=== PATIENT | female | born 1955 | race Caucasian/White ===

== ENCOUNTER → 2021-04-14 | Outpatient (CLI) | payer MEDICARE ==
[2021-04-14 09:07] LABS: African American GFR (CKD) >90 (>60 ml/min/1.73 sqM); Blood Urea Nitrogen <2 mg/dL (7-17); Non-African American GFR(CKD) >90 (>60 ml/min/1.73 sqM)
--- NOTE | 2021-04-14 11:02 | CT ---
EXAMINATION TYPE: CT abdomen pelvis wo/w con DATE OF EXAM: 04/14/2021 COMPARISON: HISTORY: diarrhea, wt loss CT DLP: 1445 mGycm Automated exposure control for dose reduction was used. CONTRAST: CT scan of the abdomen pelvis is performed without and with IV Contrast, patient injected with 100 mL of Isovue 300. FINDINGS- LUNG BASES- No significant abnormality is appreciated. LIVER/GB- No gross abnormality is appreciated. PANCREAS- No gross abnormality is seen. SPLEEN- No gross abnormality is seen. ADRENALS- No gross abnormality is seen. KIDNEYS/BLADDER- no hydronephrosis nephrolithiasis or renal mass. BOWEL-wall thickening to level the GE junction upper margin of the gastric fundus. Partially could be explained due to reduced distention however mucosal abnormality not excluded and direct visualizatio n recommended.Mild wall thickening of the right colon also may be related to incomplete distention. T here is a prominent lipomatous ileocecal valve. LYMPH NODES- No greater than 1cm abdominal or pelvic lymph nodes areappreciated. OSSEOUS STRUCTURES-hypertrophic and degenerative changes of the spine. OTHER- mild bladder wall thickening correlate with cystitis. Atherosclerotic change of the vasculatu re. Aorta of normal caliber. Post hysterectomy changes noted. IMPRESSION- 1. Mild thickening of the GE junction and gastric wall. Some of which may be related to incomplete di stention. Correlate clinically and with direct visualization to assess as clinically warranted. 2. Correlate for mild cystitis. 3. Mild wall thickening of the right colon also may be related to incomplete distention. There is a p rominent lipomatous ileocecal valve. If there is symptoms of colitis or GI abnormality then consider direct visualization.
== END | disposition home or self-care (01) ==
LOC: RADCTMAIN 08:22
PROVIDERS: ATTEND Internal Medicine
DX: N30.90 Cystitis, unspecified without hematuria (principal)
CPT/HCPCS: 82565; 84520; 74178; 36415; Q9967

== ENCOUNTER 2023-02-22 11:36 | Observation (INO) | payer MEDICARE ==
[2023-02-22] MEDS ORDERED: SODIUM CHLORIDE 0.9% 1,000 ML IV STA (11:59)
[2023-02-22 12:19] LABS: Basophils # (A) 0.1 k/uL (0-0.2); Basophils % (A) 1 %; Eosinophils # (A) 0.2 k/uL (0-0.7); Eosinophils % (A) 2 %; HCT 43.3 % (34.0-46.0); HGB 14.8 gm/dL (11.4-16.0); Lymphocytes % (A) 30 %; MCHC 34.2 g/dL (31.0-37.0); MCV 102.2 fL (80.0-100.0); Mean Platelet Volume 7.5; Monocytes # (A) 0.5 k/uL (0-1.0); Monocytes % (A) 7 %; Neutrophils # (A) 3.9 k/uL (1.3-7.7); Neutrophils % (A) 58 %; Platelet Count 390 k/uL (150-450); RBC 4.24 m/uL (3.80-5.40); RDW 11.9 % (11.5-15.5); WBC 6.7 k/uL (3.8-10.6)
--- NOTE | 2023-02-22 12:27 | ED ---
General Adult HPI - General Chief complaint: Recheck/Abnormal Lab/Rx Stated complaint: abn labs Time Seen by Provider: 02/22/23 11:59 Source: patient, family, RN notes reviewed Mode of arrival: ambulatory Limitations: no limitations - History of Present Illness Initial comments: Patient is a pleasant 67-year-old female presenting to the emergency department with concerns with reported low sodium level. Patient originally states she has no complaints. Patient later admits to feeling a little bit weak and fatigued for a very long period of time. Nothing new. No isolated area of weakness. Patient denies excessive water intake and is unclear why her sodium level might be low. No history of similar symptoms previously. No history of hyponatremia. Patient did have a fall a week ago and hit her left upper chest region. Patient is having some discomfort there. states sodium level was 126 is an outpatient. - Related Data Home Medications Medication Instructions Recorded Confirmed Cyanocobalamin (Vitamin B-12) 1,000 mcg PO DAILY 02/22/23 02/22/23 [Vitamin B-12] Metoprolol Succinate (ER) [Toprol 50 mg PO DAILY 02/22/23 02/22/23 Xl] Allergies Allergy/AdvReac Type Severity Reaction Status Date / Time No Known Allergies Allergy Verified 02/22/23 12:31 Review of Systems ROS Statement: Those systems with pertinent positive or pertinent negative responses have been documented in the HPI. ROS Other: All systems not noted in ROS Statement are negative. Constitutional: Denies: fever Eyes: Denies: eye pain ENT: Denies: ear pain Respiratory: Denies: cough, dyspnea Cardiovascular: Denies: chest pain Endocrine: Reports: as per HPI, fatigue Gastrointestinal: Denies: abdominal pain Genitourinary: Denies: dysuria Musculoskeletal: Denies: back pain Skin: Denies: rash Neurological: Reports: as per HPI. Denies: headache, confusion Past Medical History Past Medical History: Hypertension History of Any Multi-Drug Resistant Organisms: None Reported Past Surgical History: Hysterectomy, Tubal Ligation Additional Past Surgical History / Comment(s): cataracts Past Psychological History: No Psychological Hx Reported Smoking Status: Current every day smoker Past Alcohol Use History: Daily Past Drug Use History: None Reported General Exam Limitations: no limitations General appearance: alert, in no apparent distress Head exam: Present: normocephalic Eye exam: Present: normal appearance ENT exam: Present: normal oropharynx Neck exam: Present: normal inspection Respiratory exam: Present: normal lung sounds bilaterally Cardiovascular Exam: Present: regular rate, normal rhythm GI/Abdominal exam: Present: soft. Absent: tenderness Extremities exam: Present: normal inspection Neurological exam: Present: alert. Absent: motor sensory deficit Psychiatric exam: Present: normal affect, normal mood Skin exam: Present: normal color Course Vital Signs 02/22/23 02/22/23 11:39 11:47 Temperature 98.1 F Pulse Rate 74 75 Respiratory 16 18 Rate Blood Pressure 175/67 167/87 O2 Sat by Pulse 98 95 Oximetry Medical Decision Making - Medical Decision Making Was pt. sent in by a medical professional or institution (, PA, METER READER INSPECTOR, urgent care, hospital, or group home...) When possible be specific @ -Patient was sent in by primary care physician secondary to hyponatremia Did you speak to anyone other than the patient for history (EMS, parent, family, police, friend...)? What history was obtained from this source @ - is present and helps confirm history including sodium level of 126. Did you review nursing and triage notes (agree or disagree)? Why? @ -I reviewed and agree with nursing and triage notes Were old charts reviewed (outside hosp., previous admission, EMS record, old EKG, old radiological studies, urgent care reports/EKG's, group home records)? Report findings @ -Previous sodium levels reviewed Differential Diagnosis (chest pain, altered mental status, abdominal pain women, abdominal pain men, vaginal bleeding, weakness, fever, dyspnea, syncope, headache, dizziness, GI bleed, back pain, seizure, CVA, palpatations, mental health)? @ -Hyponatremia EKG interpreted by me (3pts min.). @ -As above X-rays interpreted by me (1pt min.). @ -Chest x-ray shows distal left clavicle fracture. Possible rib fractures CT interpreted by me (1pt min.). @ -None done U/S interpreted by me (1pt. min.). @ -None done What testing was considered but not performed or refused? (CT, X-rays, U/S, labs)? Why? @ -Osmolarity and urine sodium ordered What meds were considered but not given or refused? Why? @ -None Did you discuss the management of the patient with other professionals (professionals i.e. , PA, METER READER INSPECTOR, lab, RT, psych nurse, social work coordinator, interior design coordinator, teacher, precinct commanding officer, case managers)? Give summary @ -Case discussed with Dr. Lam, who will admit covering Dr. Reese Was smoking cessation discussed for >3mins.? @ -No Was critical care preformed (if so, how long)? @ -No Were there social determinants of health that impacted care today? How? (Homelessness, low income, unemployed, alcoholism, drug addiction, transportation, low edu. Level, literacy, decrease access to med. care, long term, rehab)? @ -No Was there de-escalation of care discussed even if they declined (Discuss DNR or withdrawal of care, Hospice)? DNR status @ -No What co-morbidities impacted this encounter? (DM, HTN, Smoking, COPD, CAD, Cancer, CVA, ARF, Chemo, Hep., AIDS, mental health diagnosis, sleep apnea, morbid obesity)? @ -None Was patient admitted / discharged? Hospital course, mention meds given and route, prescriptions, significant lab abnormalities, going to OR and other pertinent info. @ -Patient reevaluated. Patient and family updated on results and plan. Undiagnosed new problem with uncertain prognosis? @ -No Drug Therapy requiring intensive monitoring for toxicity (Heparin, Nitro, Insulin, Cardizem)? @ -No Were any procedures done? @ -No Diagnosis/symptom? @ -Hyponatremia Acute, or Chronic, or Acute on Chronic? @ -Acute Uncomplicated (without systemic symptoms) or Complicated (systemic symptoms)? @ -default Side effects of treatment? @ -No Exacerbation, Progression, or Severe Exacerbation? @ -No Poses a threat to life or bodily function? How? (Chest pain, USA, MA, pneumonia, PE, COPD, DKA, ARF, appy, cholecystitis, CVA, Diverticulitis, Homicidal, Suicidal, threat to staff... and all critical care pts) @ -Risk for change in mental status,: Seizure if hyponatremia worsens - Lab Data Result diagrams: 02/22/23 12:10 02/22/23 12:10 Lab Results 02/22/23 02/22/23 02/22/23 Range/Units 12:10 12:10 12:10 WBC 6.7 (3.8-10.6) k/uL RBC 4.24 (3.80-5.40) m/uL Hgb 14.8 (11.4-16.0) gm/dL Hct 43.3 (34.0-46.0) % MCV 102.2 H (80.0-100.0) fL MCH 35.0 (25.0-35.0) pg MCHC 34.2 (31.0-37.0) g/dL RDW 11.9 (11.5-15.5) % Plt Count 390 (150-450) k/uL MPV 7.5 Neutrophils % 58 % Lymphocytes % 30 % Monocytes % 7 % Eosinophils % 2 % Basophils % 1 % Neutrophils # 3.9 (1.3-7.7) k/uL Lymphocytes # 2.0 (1.0-4.8) k/uL Monocytes # 0.5 (0-1.0) k/uL Eosinophils # 0.2 (0-0.7) k/uL Basophils # 0.1 (0-0.2) k/uL Sodium 127 L (137-145) mmol/L Potassium 4.8 (3.5-5.1) mmol/L Chloride 92 L (98-107) mmol/L Carbon Dioxide 26 (22-30) mmol/L Anion Gap 9 mmol/L BUN 6 L (7-17) mg/dL Creatinine 0.55 (0.52-1.04) mg/dL Est GFR (CKD-EPI)AfAm >90 (>60 ml/min/1.73 sqM) Est GFR (CKD-EPI)NonAf >90 (>60 ml/min/1.73 sqM) Glucose 99 (74-99) mg/dL Calcium 9.7 (8.4-10.2) mg/dL Phosphorus 4.3 (2.5-4.5) mg/dL Magnesium 1.8 (1.6-2.3) mg/dL Total Bilirubin 1.3 (0.2-1.3) mg/dL AST 46 H (14-36) U/L ALT 25 (4-34) U/L Alkaline Phosphatase 71 (38-126) U/L Troponin I <0.012 (0.000-0.034) ng/mL Total Protein 7.4 (6.3-8.2) g/dL Albumin 4.7 (3.5-5.0) g/dL TSH 1.370 (0.465-4.680) mIU/L Free T4 1.31 (0.78-2.19) ng/dL Free T3 pg/mL 2.6 L (2.8-5.3) pg/ml Disposition Clinical Impression: Hyponatremia Disposition: ADMITTED IP TO THIS HOSP Is patient prescribed a controlled substance at d/c from ED?: No Referrals: Aric Gordillo MD [Primary Care Provider] - 1-2 days Time of Disposition: 13:06
[2023-02-22 12:33] LABS: Potassium 4.8 mmol/L (3.5-5.1)
[2023-02-22 12:34] LABS: ALT 25 U/L (4-34); AST 46 U/L (14-36); African American GFR (CKD) >90 (>60 ml/min/1.73 sqM); Albumin 4.7 g/dL (3.5-5.0); Alkaline Phosphatase 71 U/L (38-126); Anion Gap 9 mmol/L; Blood Urea Nitrogen 6 mg/dL (7-17); Calcium 9.7 mg/dL (8.4-10.2); Carbon Dioxide 26 mmol/L (22-30); Chloride 92 mmol/L (98-107); Glucose 99 mg/dL (74-99); Magnesium 1.8 mg/dL (1.6-2.3); Non-African American GFR(CKD) >90 (>60 ml/min/1.73 sqM); Phosphorus 4.3 mg/dL (2.5-4.5); Sodium 127 mmol/L (137-145); Total Bilirubin 1.3 mg/dL (0.2-1.3); Total Protein 7.4 g/dL (6.3-8.2)
--- NOTE | 2023-02-22 12:37 | XR ---
EXAMINATION TYPE: XR chest 2V DATE OF EXAM: 02/22/2023 COMPARISON: NONE HISTORY: Shortness of breath TECHNIQUE: Frontal and lateral views of the chest are obtained. FINDINGS: Scattered senescent parenchymal changes noted. Hyperinflation compatible with COPD. No evidence for infiltrate. No evidence for atelectasis. Heart size is stable. Mediastinal structures are stable and grossly unremarkable. No evidence for hilar prominence. Degenerative changes dorsal spine. Multiple remote left-sided rib deformities. IMPRESSION: 1. No evidence for acute pulmonary disease.
[2023-02-22 12:47] LABS: T4, Free (Free Thyroxine) 1.31 ng/dL (0.78-2.19)
[2023-02-22] MEDS ORDERED: NALOXONE 0.4 MG/ML 1 ML VIAL IV PRN (13:07)
[2023-02-22] MEDS ORDERED: SODIUM CHLORIDE 0.9% 1,000 ML IV SCH (13:15)
--- NOTE | 2023-02-22 13:32 | XR ---
EXAMINATION TYPE: XR shoulder complete LT DATE OF EXAM: 02/22/2023 CLINICAL HISTORY: pain COMPARISON: NONE TECHNIQUE: Three views of the left shoulder are obtained. FINDINGS: There is minimally displaced fracture of the distal clavicle approximately 3 cm proximal to the AC joint. The left AC joint is intact. Glenohumeral joint is intact. No proximal humeral fractur e evident. Chronic deformity of several left-sided ribs. IMPRESSION: There is minimally displaced fracture of the distal left clavicle
--- NOTE | 2023-02-22 13:38 | XR ---
EXAMINATION TYPE: XR ribs LT DATE OF EXAM: 02/22/2023 CLINICAL HISTORY: Pain, Fall There is fracture of left rib 4, 7 and 10 which are of indeterminate age. Healed fractures of left ri bs 5 and 6. Correlate clinically with point tenderness. No evidence of pulmonary contusion or pleural thickening. IMPRESSION: fractures of ribs 4, 7 and 10 of indeterminate age. Remote fractures of left ribs 5 and 6.
[2023-02-22 15:42] LABS: Appearance,Urine Clear (Clear); Bilirubin,Urine Negative (Negative); Blood,Urine Negative (Negative); Color,Urine Yellow; Glucose,Urine (UA) Negative (Negative); Ketones,Urine Negative (Negative); Leukocyte Esterase,Urine Negative (Negative); Nitrite,Urine Negative (Negative); PH, Urine 5.5 (5.0-8.0); Protein,Urine Negative (Negative); Specific Gravity,Urine 1.006 (1.001-1.035); Urobilinogen,Urine <2.0 mg/dL (<2.0)
[2023-02-22] MEDS ORDERED: ACETAMINOPHEN TAB 325 MG TAB PO PRN (16:42)
[2023-02-22] MEDS ORDERED: HYDROcodone/APAP 5-325MG 1 EACH TAB PO PRN (16:42)
[2023-02-22] MEDS ORDERED: MELATONIN 3 MG TABLET PO PRN (16:42)
[2023-02-22] MEDS ORDERED: ONDANSETRON 4 MG/2 ML VIAL IVP PRN (16:42)
[2023-02-22] MEDS ORDERED: DEXTROSE 50% SYRINGE 50 ML IVP PRN ×2 (16:44)
[2023-02-22] MEDS ORDERED: LORazepam 0.5 MG TAB PO PRN (16:46)
[2023-02-22] MEDS ORDERED: THIAMINE 100 MG/ML 2 ML VIAL IM STA (16:46)
[2023-02-22] MEDS ORDERED: LORazepam 1 MG TAB PO PRN ×3 (16:46)
--- NOTE | 2023-02-22 16:47 | P.HPIM ---
History of Present Illness H&P Date: 02/22/23 Patient is a 67-year-old female with hypertension, nicotine dependency, and alcohol dependency who presented to the ER at the direction of her primary care physician for low sodium. In the outpatient setting her sodium level is 126. On presentation to the ER she underwent an extensive evaluation. On arrival her temperature was 98.1, pulse 74, respirations 16, blood pressure 175/67, and O2 sat 98% on room air. Laboratory analysis was remarkable for an MCV of 102.2, sodium 127, chloride 92, BUN 6, osmolality 265, AST 46. Urine osmolality was 218. She underwent a chest x-ray which showed no acute cardiopulmonary process, shoulder x-ray showed minimally displaced left clavicular fracture, rib x-ray demonstrated fractures of ribs 4, 7, and 10 of indeterminate age and remote fractures of ribs 5 and 6. Patient seen and examined at bedside. She reports that she has been feeling slightly weak and has had some weight loss but has had an intact appetite. She denies any chest pain, shortness of breath, unusual numbness or tingling prior to presentation. She denies any recent cough, cold, fever, flu. She denies taking any supplements. She denies any recent changes in medication. She does have a history of diarrhea that has been going on for the past 3 years. She did undergo investigation with including stool studies and colonoscopy with biopsy. However her diarrhea has not been escalating. About a week ago she was sleeping on the couch and got up with the lights off tripped and fell over a cat tower. She landed on the left side of her chest and has been having pain since that time. She has difficulty raising her left arm due to pain. She drinks 8 beers nightly. She is unsure the last time she went a day without drinking. Vital signs reviewed General: nontoxic, no distress, appears at stated age Derm: warm, dry, ecchymosis over left clavical. Eyes: EOMI, no lid lag, anicteric sclera, pupils equal round reactive to light ENT: Nose and ears atraumatic, no thrush, no pharyngeal erythema Cardiovascular: S1S2 reg, no murmur, positive posterior tibial pulse bilateral, no edema, capillary refill less than 2 seconds Lungs: clear to auscultation bilateral, no rhonchi, no rales, no wheeze, no accessory muscle use Abdominal: soft, nontender to palpation, no guarding, no appreciable organomegaly, normal bowel sounds Ext: no gross muscle atrophy, Moving all 4 extremities independently, no contractures Neuro: CN II-XII grossly intact, no focal neuro deficits Psych: Alert, oriented, appropriate affect Assessment/Plan : Euvolemic hypontremia - TSH is normal - Await urine sodiuma dn osmolality - serial sodium levels - Renal and bladder US to rule out retention - consult nephrology - supect due to ETOH Hyperglycemia - SSI - follow BS - check A1C ETOH dependency - CIWA - Thiamine and folic acid HTN - resume home metoprolol - follow BP Nicotine Dependency - patch Imaging: EKG is reviewed by myself revealed normal sinus rhythm with PVCs, normal axis, normal intervals and as per HPI Data Review: As per HPI The patient is admitted with an anticipated greater than 2 midnight stay for ev aluation of hyponatremia. Surrogate decision-maker: Daughter DVT prophylaxis: SCDs Anticipated discharge date: Pending Clinical Course Anticipated discharge place: Pending Clinical Course This dictation was prepared using [employer] voice recognition software. Though every attempt is made to correct errors during dictation some may still exist. Past Medical History Past Medical History: Hypertension History of Any Multi-Drug Resistant Organisms: None Reported Past Surgical History: Hysterectomy, Tubal Ligation Additional Past Surgical History / Comment(s): cataracts Past Psychological History: No Psychological Hx Reported Smoking Status: Current every day smoker Past Alcohol Use History: Daily Past Drug Use History: None Reported Medications and Allergies Home Medications Medication Instructions Recorded Confirmed Type Cyanocobalamin (Vitamin B-12) 1,000 mcg PO DAILY 02/22/23 02/22/23 History [Vitamin B-12] Metoprolol Succinate (ER) [Toprol 50 mg PO DAILY 02/22/23 02/22/23 History Xl] Allergies Allergy/AdvReac Type Severity Reaction Status Date / Time No Known Allergies Allergy Verified 02/22/23 12:31 Physical Exam Osteopathic Statement: *. No significant issues noted on an osteopathic structural exam other than those noted in the History and Physical/Consult. Vitals: Vital Signs Temp Pulse Pulse Resp BP BP Pulse Ox 02/22/23 16:40 98.2 F 76 17 138/70 99 02/22/23 16:02 75 18 124/73 96 02/22/23 13:30 81 18 155/81 97 02/22/23 11:47 75 18 167/87 95 02/22/23 11:39 98.1 F 74 16 175/67 98 Intake and Output 02/22/23 02/22/23 02/22/23 06:59 14:59 22:59 Other: Weight 54.431 kg Results CBC & Chem 7: 02/22/23 12:10 02/22/23 12:10 Labs: Abnormal Lab Results - Last 24 Hours (Table) 02/22/23 02/22/23 02/22/23 Range/Units 12:10 12:10 12:10 MCV 102.2 H (80.0-100.0) fL Sodium 127 L (137-145) mmol/L Chloride 92 L (98-107) mmol/L BUN 6 L (7-17) mg/dL Osmolality 265 L (280-301) mosm/kg AST 46 H (14-36) U/L Free T3 pg/mL 2.6 L (2.8-5.3) pg/ml
[2023-02-22 17:53] LABS: African American GFR (CKD) >90 (>60 ml/min/1.73 sqM); Anion Gap 5 mmol/L; Blood Urea Nitrogen 10 mg/dL (7-17); Calcium 9.4 mg/dL (8.4-10.2); Carbon Dioxide 28 mmol/L (22-30); Chloride 94 mmol/L (98-107); Glucose 108 mg/dL (74-99); Non-African American GFR(CKD) >90 (>60 ml/min/1.73 sqM); Potassium 4.2 mmol/L (3.5-5.1); Sodium 127 mmol/L (137-145)
--- NOTE | 2023-02-22 19:18 | US ---
EXAMINATION TYPE: US kidneys/renal and bladder DATE OF EXAM: 02/22/2023 COMPARISON: 04/14/2021 CLINICAL INDICATION: Female, 67 years old with history of retention; EXAM MEASUREMENTS: Right Kidney: 9.4 x 4.9 x 4.1 cm Left Kidney: 9.7 x 4.4 x 4.4 cm *Technical limitations due to large amount of overlying bowel content Right Kidney: no evidence of hydronephrosis Left Kidney: No evidence of hydronephrosis. Bladder: appears wnl,No post void retention volumes were obtained. Bilateral Jets seen: no IMPRESSION: No obstructive uropathy. No post void retention volumes were obtained.
[2023-02-22] MEDS: INSULIN ASPART (NovoLOG) 100 UNIT/ML VIAL SQ SCH ×2 (19:29→19:49)
[2023-02-23] MEDS: INSULIN ASPART (NovoLOG) 100 UNIT/ML VIAL SQ SCH (03:48)
[2023-02-23 07:08] LABS: African American GFR (CKD) >90 (>60 ml/min/1.73 sqM); Anion Gap 5 mmol/L; Blood Urea Nitrogen 10 mg/dL (7-17); Calcium 9.1 mg/dL (8.4-10.2); Carbon Dioxide 25 mmol/L (22-30); Chloride 99 mmol/L (98-107); Glucose 83 mg/dL (74-99); Non-African American GFR(CKD) >90 (>60 ml/min/1.73 sqM); Potassium 4.4 mmol/L (3.5-5.1); Sodium 129 mmol/L (137-145)
[2023-02-23] MEDS: METOPROLOL SUCCINATE (ER) 50 MG TAB.ER.24H PO SCH (09:48)
[2023-02-23] MEDS: MULTIVITAMINS, THERA 1 EACH TAB PO SCH (09:48)
[2023-02-23] MEDS: FOLIC ACID 1 MG TAB PO SCH (09:48)
[2023-02-23] MEDS: THIAMINE 100 MG TAB PO SCH (09:48)
[2023-02-23] MEDS: NICOTINE 21MG/24HR PATCH TRANSDERM SCH (09:49)
[2023-02-23 11:46] LABS: HCT 38.4 % (37.2-46.3); HGB 12.9 d/dL (12.0-15.0); MCH 33.9 pg (27.0-32.0); MCHC 33.6 d/dL (32.0-37.0); MCV 101.1 FL (80.0-97.0); Mean Platelet Volume 9.7 FL (9.5-12.2); NRBC Per 100 WBC 0 X 10*3/uL (0.00-0.01); Platelet Count 349 X 10*3/uL (140-440); RDW 12.4 % (11.5-14.5); WBC 6.07 X 10*3/uL (4.50-10.00)
--- NOTE | 2023-02-23 12:15 | P.CNOR ---
History of Present Illness - [facility] Consult date: 02/23/23 Requesting physician: Emmanuelle Maddox Consult reason: fracture, other (Left clavical fracture and multiple rib frac tures) History of present illness: History of Presenting Illness Patient is a pleasant 67-year-old female who was sent in to the ER by her primary care provider due to hyponatremia. Patient states about a week ago she fell asleep on the couch and when she had awoken the room was dark and she went to walk to her bedroom and tripped over her cat's scratching post, landing into a wooden rocking chair. Patient did not seek medical attention at that time. Over the past week she has had increase of pain in her left shoulder and left ribs. Patient states she lives alone and is independent with no assisted devices. Patient has medical history of hypertension and ETOH. Patient reports that she drinks 8 beers daily. Denies any recreational drug use. Patient denies any orthopedic history. Our services have been consulted due to left shoulder x-ray demonstrating a minimally displaced fracture of the left distal clavicle. Rib x-ray demonstrates fracture of indeterminant age of left ribs 4, 7, 10 and healed fractures of the left ribs 5 and 6. Patient seen and examined this morning. Patient is currently resting in bed. Patient states that her pain is managed on current regimen. She does have limited range of motion to the left upper extremity due to fracture and pain. Patient denies numbness or tingling to bilateral upper and lower extremities. Informed patient that there is no surgical intervention necessary at this time. Patient is looking forward to going home at discharge. Informed patient that a sling will be ordered to be placed on left upper extremity to assist with immobilization for healing of fracture. Patient is cleared from orthopedic standpoint for discharge once medically stable. Revi thatew of Systems Pertinent positives and negatives as discussed in HPI, a complete review of systems was performed and all other systems are negative. Physical Examination Inspection: Negative for any open fractures, significant erythema, or ulcers. Ecchymosis noted over the left shoulder and clavicle area Sensation: Sensation is equal, symmetric, bilaterally intact throughout the upper and lower extremities Palpation: Nontender to palpation throughout right upper and lower extremities and throughout spine exam. TTP over the left clavicle region area and Range of motion: Patient does have full range of motion right upper and lower extremities on exam. Patient has limited range of motion of the left upper extremity due to fracture and pain. Motor: 5/5 in all major motor groups in the bilateral upper and lower extremities Special tests: Negative Homans bilaterally. Negative Rhys bilaterally. Negative clonus bilaterally. Neurovascular: Radial pulse intact, 2+ bilaterally. Cap refill under 3 seconds in digits upper extremities. Assessment and Plan Fall with trauma Minimally displaced left clavicle fracture Fracture of indeterminant age of left ribs 4, 7, 10 and healed fractures of the left ribs 5 and 6 At this time we do not recommend any emergent/urgent orthopedic surgical intervention. Patient may follow-up with Dr. Giordano's office in 2 weeks. Orthopedics is signing off at this time. Please do not hesitate to contact us for any further questions. 2. Appreciate medical management 3. Pain management - Continue with Tylenol or Randolph, ice and elevate. 4. Sling ordered for Left upper extremity, please place when obtained. Patient to continue to wear until follow up in office and we will reassess. 5. DVT prophylaxis - Scds 6. PT/OT - non-weightbearing to LUE, perform ROM exercises with left elbow. 7. Appreciate consult I reviewed and discussed this case with my attending Dr. Giordano, whom has reviewed this chart and films and is in agreement with assessment and plan of care as outlined above. I have personally seen and examined the patient, performed the documentation and the assessment and plan as written. Number of minutes spent on the visit: 20m. Past Medical History Past Medical History: Hypertension History of Any Multi-Drug Resistant Organisms: None Reported Past Surgical History: Hysterectomy, Tubal Ligation Additional Past Surgical History / Comment(s): cataracts Past Anesthesia/Blood Transfusion Reactions: No Reported Reaction Past Psychological History: No Psychological Hx Reported Smoking Status: Current every day smoker Past Alcohol Use History: Daily Past Drug Use History: None Reported Medications and Allergies Home Medications Medication Instructions Recorded Confirmed Type Cyanocobalamin (Vitamin B-12) 1,000 mcg PO DAILY 02/22/23 02/22/23 History [Vitamin B-12] Metoprolol Succinate (ER) [Toprol 50 mg PO DAILY 02/22/23 02/22/23 History Xl] Allergies Allergy/AdvReac Type Severity Reaction Status Date / Time No Known Allergies Allergy Verified 02/22/23 12:31 Results - Labs Labs: Abnormal Lab Results - Last 24 Hours (Table) 02/22/23 02/22/23 02/22/23 Range/Units 12:10 12:10 12:10 MCV 102.2 H (80.0-100.0) fL Sodium 127 L (137-145) mmol/L Chloride 92 L (98-107) mmol/L BUN 6 L (7-17) mg/dL Creatinine (0.52-1.04) mg/dL Glucose (74-99) mg/dL Osmolality 265 L (280-301) mosm/kg Plasma Lactic Acid Brett (0.7-2.0) mmol/L AST 46 H (14-36) U/L Free T3 pg/mL 2.6 L (2.8-5.3) pg/ml Ur Random Sodium (40-220) mmol/L 02/22/23 02/22/23 02/23/23 Range/Units 15:25 17:27 06:15 MCV (80.0-100.0) fL Sodium 127 L 129 L (137-145) mmol/L Chloride 94 L (98-107) mmol/L BUN (7-17) mg/dL Creatinine 0.50 L (0.52-1.04) mg/dL Glucose 108 H (74-99) mg/dL Osmolality (280-301) mosm/kg Plasma Lactic Acid Brett (0.7-2.0) mmol/L AST (14-36) U/L Free T3 pg/mL (2.8-5.3) pg/ml Ur Random Sodium <20 L (40-220) mmol/L 02/23/23 Range/Units 06:39 MCV (80.0-100.0) fL Sodium (137-145) mmol/L Chloride (98-107) mmol/L BUN (7-17) mg/dL Creatinine (0.52-1.04) mg/dL Glucose (74-99) mg/dL Osmolality (280-301) mosm/kg Plasma Lactic Acid Brett 0.6 L (0.7-2.0) mmol/L AST (14-36) U/L Free T3 pg/mL (2.8-5.3) pg/ml Ur Random Sodium (40-220) mmol/L H & H 02/22/23 Range/Units 12:10 Hgb 14.8 (11.4-16.0) gm/dL Hct 43.3 (34.0-46.0) % Result Diagrams: 02/23/23 06:15 02/23/23 06:15
--- NOTE | 2023-02-23 16:06 | P.PN ---
Subjective Progress Note Date: 02/23/23 Hospital course: Patient is a very pleasant 67-year-old female with a past medical history of hypertension, nicotine dependency, and alcohol dependency drinking approximately 8 beers daily. She presented to the ER on 02/22/23 at the direction of her primary care physician for findings of low sodium. In the outpatient setting her sodium level is 126. On presentation to the ER she underwent an extensive evaluation. Labs completed. BMP revealing hyponatremia with sodium 127, chlo ride 94, urine sodium less than 20, and urine osmolality 218 with serum osmolality of 265. Patient was also noted to have elevated AST of 46. TSH was normal findings at 1.370 along with normal free T4 of 1.31. Imaging was completed and reviewed. Chest x-ray revealed multiple remote left-sided rib deformities and was was negative for acute cardiopulmonary process showing hyperinflation consistent with COPD. X-ray left shoulder then completed revealing a minimally displaced fracture of the distal left clavicle. X-ray left ribs also completed showing fractures of ribs 4, 7, and 10 of indeterminate age and remote fractures of left ribs 5 and 6. Patient did report tripping and falling over her cat tower one week ago previously and has known history of alcohol dependency and daily alcohol use/abuse. Patient was admitted under services with consultation to orthopedic surgery and nephrology. Physical exam: Vital signs reviewed General: nontoxic, no distress, appears at stated age Derm: warm, dry, ecchymosis over left clavical. Eyes: EOMI, no lid lag, anicteric sclera, pupils equal round reactive to light ENT: Nose and ears atraumatic, no thrush, no pharyngeal erythema Cardiovascular: S1S2 reg, no murmur, positive posterior tibial pulse bilateral, no edema, capillary refill less than 2 seconds Lungs: clear to auscultation bilateral, no rhonchi, no rales, no wheeze, no accessory muscle use Abdominal: soft, nontender to palpation, no guarding, no appreciable organomegaly, normal bowel sounds Ext: no gross muscle atrophy, movement and sensation intact. Sling in place to left arm. Neuro: CN II-XII grossly intact, no focal neuro deficits Psych: Alert, oriented, appropriate affect Assessment and plan of care: Euvolemic hypontremia ETOH dependency -Monitoring of CIWA scores to continue and patient to be medicated with Ativan 0.5 mg every 4 hours as needed for CIWA score of 4-5, Ativan 1 mg every 4 hours for CIWA score of 6-7, Ativan 2 mg every 3 hours CIWA score of 8-9, and Ativan 2 mg every 2 hours forr CIWA score of 10 or greater. -Thiamine and folic acid - TSH is normal - Urine sodium < 20 and urine osmolality 218 -Serum osmolality low at 265 -Labs reviewed, with gentle IV fluid hydration at 0.9% normal saline 75 mL's per hour sodium increasing from 127 to 129. - Renal and bladder US was completed in radiology report reviewed showing no obstructive uropathy and no post void retention volumes were obtained. -Neurology consulted, appreciate recommendations. -Hyponatremia is suspected to be chronic secondary to daily EtOH abuse. We'll continue with IV hydration with 0.9% normal saline at 75 mL's per hour for an additional 24 hours with plans for likely discharge tomorrow morning. Left clavical fracture Left rib fractures 4, 7, and 10 of indeterminate age and remote fractures of 5 and 6 -Orthopedic surgery following and discussed plan of care, recommending nonweightbearing of left upper extremity and continuation of sling -Symptomatic care and pain management with [place] 5/325 mg tablet in control with norco 5/325 mg -Continue to encourage use of incentive spirometry 10-15 times hourly while awake. HTN -Continue home medication regimen with metoprolol 50 mg daily Nicotine Dependency -Nicotine patch 21 mg daily -Recommend smoking cessation Imaging: -Renal and bladder US was completed and radiology report reviewed by me showing no obstructive uropathy and no post void retention volumes were obtained. Data Review: -Morning labs reviewed. Sodium improving from 127 up to 129 this morning. DVT prophylaxis: SCDs Anticipated discharge date: Tomorrow morning Anticipated discharge place: home Patient was seen independently by Nurse Pracitioner. This document was prepared using [employer] dictation software. Please allow for errors in utility arborist, while rare they do occur. I reviewed the documentation as provided by the DANDY above, who is the original author of this note. I agree with the documented assessment and plan, with the following changes: none Objective - Vital Signs Vital signs: Vital Signs Temp 98.2 F 02/23/23 06:45 Pulse 79 02/23/23 06:45 Resp 16 02/23/23 06:45 BP 142/64 02/23/23 06:45 Pulse Ox 98 02/23/23 06:45 FiO2 Intake & Output 02/22/23 02/23/23 02/23/23 18:59 06:59 18:59 Weight 54.431 kg Other: Voiding Method Toilet # Voids 3 - Labs CBC & Chem 7: 02/23/23 06:15 02/24/23 09:33 Labs: Abnormal Lab Results - Last 24 Hours (Table) 02/22/23 02/22/23 02/22/23 Range/Units 12:10 12:10 12:10 MCV 102.2 H (80.0-100.0) fL Sodium 127 L (137-145) mmol/L Chloride 92 L (98-107) mmol/L BUN 6 L (7-17) mg/dL Creatinine (0.52-1.04) mg/dL Glucose (74-99) mg/dL Osmolality 265 L (280-301) mosm/kg Plasma Lactic Acid Brett (0.7-2.0) mmol/L AST 46 H (14-36) U/L Free T3 pg/mL 2.6 L (2.8-5.3) pg/ml Ur Random Sodium (40-220) mmol/L 02/22/23 02/22/23 02/23/23 Range/Units 15:25 17:27 06:15 MCV (80.0-100.0) fL Sodium 127 L 129 L (137-145) mmol/L Chloride 94 L (98-107) mmol/L BUN (7-17) mg/dL Creatinine 0.50 L (0.52-1.04) mg/dL Glucose 108 H (74-99) mg/dL Osmolality (280-301) mosm/kg Plasma Lactic Acid Brett (0.7-2.0) mmol/L AST (14-36) U/L Free T3 pg/mL (2.8-5.3) pg/ml Ur Random Sodium <20 L (40-220) mmol/L 02/23/23 Range/Units 06:39 MCV (80.0-100.0) fL Sodium (137-145) mmol/L Chloride (98-107) mmol/L BUN (7-17) mg/dL Creatinine (0.52-1.04) mg/dL Glucose (74-99) mg/dL Osmolality (280-301) mosm/kg Plasma Lactic Acid Brett 0.6 L (0.7-2.0) mmol/L AST (14-36) U/L Free T3 pg/mL (2.8-5.3) pg/ml Ur Random Sodium (40-220) mmol/L
--- NOTE | 2023-02-23 16:46 | P.NPCON ---
History of Present Illness - Reason for Consult Consult date: 02/23/23 hyponatremia - Chief Complaint Abnormal labs - History of Present Illness Referred by the primary care physician with abnormal labs. Low sodium off 127. History of hyponatremia in the past with a sodium of 132-135. History of EtOH abuse and chronic diarrhea, taking antidiarrheals. Denies thiazide diuretic use, antidepressants or antipsychotics. No history of active cancer. Admits drinking a lot of water at home. While in the hospital started on normal saline sodium improved to 09/21/2018 today. No symptoms from hyponatremia. Review of Systems Constitutional: Reports as per HPI Past Medical History Past Medical History: Hypertension History of Any Multi-Drug Resistant Organisms: None Reported Past Surgical History: Hysterectomy, Tubal Ligation Additional Past Surgical History / Comment(s): cataracts Past Anesthesia/Blood Transfusion Reactions: No Reported Reaction Past Psychological History: No Psychological Hx Reported Smoking Status: Current every day smoker Past Alcohol Use History: Daily Past Drug Use History: None Reported Medications and Allergies Home Medications Medication Instructions Recorded Confirmed Type Cyanocobalamin (Vitamin B-12) 1,000 mcg PO DAILY 02/22/23 02/22/23 History [Vitamin B-12] Metoprolol Succinate (ER) [Toprol 50 mg PO DAILY 02/22/23 02/22/23 History Xl] Allergies Allergy/AdvReac Type Severity Reaction Status Date / Time No Known Allergies Allergy Verified 02/22/23 12:31 Physical Exam Vitals: Vital Signs Temp Pulse Resp BP BP Pulse Ox 02/23/23 14:41 98 F 73 16 109/65 97 02/23/23 06:45 98.2 F 79 16 142/64 98 02/23/23 02:00 97.7 F 66 14 157/69 96 02/22/23 19:52 98.1 F 77 16 144/73 97 02/22/23 16:49 97.6 F 74 16 150/71 97 Intake and Output 02/23/23 02/23/23 02/23/23 06:59 14:59 22:59 Other: # Voids 3 1 No acute distress S1-S2 heard Decreased breath sounds Abdomen soft No edema Results - Lab Results Most recent lab results Calcium 9.1 mg/dL (8.4-10.2) 02/23/23 06:15 Phosphorus 4.3 mg/dL (2.5-4.5) 02/22/23 12:10 Magnesium 1.8 mg/dL (1.6-2.3) 02/22/23 12:10 02/23/23 06:15 02/23/23 06:15 Assessment and Plan Assessment: #1 acute on chronic hypotonic hyponatremia suspect volume depletion. -Urine sodium off less than 20 Concern for SIADH with chronicity. #2 chronic diarrhea #3 normal renal function #4 EtOH abuse #5 left clavicle fracture Plan: #1 sodium improving with normal saline. Continue with normal saline at 75 ML's an hour. #2 check sodium in the morning. If repeat sodium remained same or dropping. Treat like SIADH. #3 supportive care
[2023-02-23] MEDS: SODIUM CHLORIDE 0.9% 1,000 ML IV SCH (19:05)
[2023-02-24 00:10] LABS: African American GFR (CKD) >90 (>60 ml/min/1.73 sqM); Anion Gap 7 mmol/L; Blood Urea Nitrogen 19 mg/dL (7-17); Calcium 9.1 mg/dL (8.4-10.2); Carbon Dioxide 24 mmol/L (22-30); Chloride 97 mmol/L (98-107); Glucose 99 mg/dL (74-99); Non-African American GFR(CKD) >90 (>60 ml/min/1.73 sqM); Potassium 4.3 mmol/L (3.5-5.1); Sodium 128 mmol/L (137-145)
[2023-02-24] MEDS: SODIUM CHLORIDE 0.9% 1,000 ML IV SCH ×2 (00:54→05:24)
[2023-02-24] MEDS: METOPROLOL SUCCINATE (ER) 50 MG TAB.ER.24H PO SCH (08:20)
[2023-02-24] MEDS: THIAMINE 100 MG TAB PO SCH (08:20)
[2023-02-24] MEDS: FOLIC ACID 1 MG TAB PO SCH (08:20)
[2023-02-24] MEDS: MULTIVITAMINS, THERA 1 EACH TAB PO SCH (08:20)
[2023-02-24] MEDS: NICOTINE 21MG/24HR PATCH TRANSDERM SCH (08:20)
[2023-02-24 10:30] LABS: African American GFR (CKD) >90 (>60 ml/min/1.73 sqM); Anion Gap 5 mmol/L; Blood Urea Nitrogen 10 mg/dL (7-17); Calcium 9.1 mg/dL (8.4-10.2); Carbon Dioxide 30 mmol/L (22-30); Chloride 96 mmol/L (98-107); Glucose 90 mg/dL (74-99); Non-African American GFR(CKD) >90 (>60 ml/min/1.73 sqM); Potassium 4.2 mmol/L (3.5-5.1); Sodium 131 mmol/L (137-145)
[2023-02-24 14:39] VITALS: BP 130/66; PULSE 69; RESP 16; TEMP 97.9
--- NOTE | 2023-02-24 15:26 | P.DS ---
Providers Date of admission: 02/22/23 13:07 Expected date of discharge: 02/24/23 Attending physician: Emmanuelle Maddox DO Consults: 02/22/23 16:43 Consult Physician Routine Consulting Provider: Gage Ni Consult Reason/Comments: hyponatremia Do you want consulting provider notified?: Yes 02/22/23 19:44 Consult Physician Routine Consulting Provider: Kurtis Giordano Consult Reason/Comments: Left clavical fracture Do you want consulting provider notified?: Already Contacted Primary care physician: Aric Gordillo MD Hospital Course: Discharge Diagnosis: Euvolemic hypontremia. Believed to be secondary to chronic alcohol abuse. Sodium improved and was 131 upon discharge. Patient strongly advised against any and all alcohol use. ETOH dependency Left clavical fracture. Orthopedic surgery following and discussed plan of care, recommending nonweightbearing of left upper extremity and continuation of sling until follow-up outpatient in their office Left rib fractures 4, 7, and 10 of indeterminate age and remote fractures of 5 and 6. Patient educated on splinting and deep breathing exercises and use of incentive spirometry. HTN. Continue home medication regimen with metoprolol 50 mg daily Nicotine Dependency. Recommend smoking cessation Hospital Course Patient is a very pleasant 67-year-old female with a past medical history of hypertension, nicotine dependency, and alcohol dependency drinking approximately 8 beers daily. She presented to the ER on 02/22/23 at the direction of her primary care physician for findings of low sodium. In the outpatient setting her sodium level is 126. On presentation to the ER she underwent an extensive evaluation. Labs completed. BMP revealing hyponatremia with sodium 127, chloride 94, urine sodium less than 20, and urine osmolality 218 with serum osmolality of 265. Patient was also noted to have elevated AST of 46. TSH was normal findings at 1.370 along with normal free T4 of 1.31. Imaging was completed and reviewed. Chest x-ray revealed multiple remote left-sided rib deformities and was was negative for acute cardiopulmonary process showing hyperinflation consistent with COPD. X-ray left shoulder then completed revealing a minimally displaced fracture of the distal left clavicle. X-ray left ribs also completed showing fractures of ribs 4, 7, and 10 of indeterminate age and remote fractures of left ribs 5 and 6. Patient did report tripping and falling over her cat tower one week ago previously and has known history of alcohol dependency and daily alcohol use/abuse. Patient was admitted under services with consultation to orthopedic surgery and nephrology. She received IV fluid hydration and sodium levels improved and upon discharge 131. Nephrology clearing patient from their standpoint for discharge. She was evaluated by orthopedic surgery they're recommending nonweightbearing of left upper extremity and continuation of sling. Medically, patient is stable for discharge at this time. She is free from any complaints at this time. Family at bedside to take patient home. Patient to follow up outpatient with PCP and orthopedic surgery as discussed. Physical exam: Vital signs reviewed General: nontoxic, no distress, appears at stated age Derm: warm, dry, ecchymosis over left clavical. Eyes: EOMI, no lid lag, anicteric sclera, pupils equal round reactive to light ENT: Nose and ears atraumatic, no thrush, no pharyngeal erythema Cardiovascular: S1S2 reg, no murmur, positive posterior tibial pulse bilateral, no edema, capillary refill less than 2 seconds Lungs: clear to auscultation bilateral, no rhonchi, no rales, no wheeze, no accessory muscle use Abdominal: soft, nontender to palpation, no guarding, no appreciable organomegaly, normal bowel sounds Ext: no gross muscle atrophy, movement and sensation intact. Sling in place to left arm. Neuro: CN II-XII grossly intact, no focal neuro deficits Psych: Alert, oriented, appropriate affect A total of 34 minutes of time were spent preparing this complex discharge summa ry. Pt was discharged on 02/24/23 at 3:19 PM. Patient was seen independently by Nurse Practitioner. This document was prepared using [employer] dictation software. Please allow for errors in fire protection engineering technician while rare they do occur. I reviewed the documentation as provided by the DANDY above, who is the original author of this note. I agree with the documented assessment and plan, with the following changes: none Patient Condition at Discharge: Stable Plan - Discharge Summary Discharge Rx Participant: Yes New Discharge Prescriptions: Continue Metoprolol Succinate (ER) [Toprol XL] 50 mg PO DAILY Cyanocobalamin (Vitamin B-12) [Vitamin B-12] 1,000 mcg PO DAILY Discharge Medication List Cyanocobalamin (Vitamin B-12) [Vitamin B-12] 1,000 mcg PO DAILY 02/22/23 [History] Metoprolol Succinate (ER) [Toprol XL] 50 mg PO DAILY 02/22/23 [History] Follow up Appointment(s)/Referral(s): Aric Gordillo MD [Primary Care Provider] - 1-2 days Kurtis Giordano DO [Doctor of Osteopathic Medicine] - 1 Week Patient Instructions/Handouts: Clavicle Fracture (DC), Rib Fracture (DC), Hyponatremia (DC), Abuse of Alcohol (DC), At-Risk Alcohol Use (DC) Activity/Diet/Wound Care/Special Instructions: Activity: As tolerated. Remember you are nonweightbearing of your left upper extremity and must use a sling until follow-up with orthopedic surgeon. Diet: Heart healthy and carb consistent diet. Avoid salts, or foods with hidden salts such as canned or boxed foods and frozen dinners. Extra salt makes your heart work harder and traps the fluid in your body for longer. Special Instructions: Take all of your medications as directed and remember to keep all of your docto r's appointments and follow-up as needed. Strongly recommend avoidance of alcohol use. Thank you for allowing us to participate in your care, it was truly a pleasure having you for our patient!!! Discharge Disposition: HOME SELF-CARE
--- NOTE | 2023-02-24 16:23 | P.PN ---
Subjective Progress Note Date: 02/24/23 Follow for hypernatremia. Doing better. Family at bedside. Objective - Vital Signs Vital signs: Vital Signs Temp 97.9 F 02/24/23 14:38 Pulse 69 02/24/23 14:38 Resp 16 02/24/23 14:38 BP 130/66 02/24/23 14:38 Pulse Ox 97 02/24/23 14:38 FiO2 Intake & Output 02/23/23 02/24/23 02/24/23 18:59 06:59 18:59 Intake Total 118 Output Total 140 Balance -140 118 Intake: Oral 118 Output: Drainage 140 Abdomen 140 Other: Voiding Method Toilet # Voids 1 3 3 - Exam No acute distress S1-S2 heard Lungs clear No edema - Labs CBC & Chem 7: 02/23/23 06:15 02/24/23 09:33 Labs: Abnormal Lab Results - Last 24 Hours (Table) 02/23/23 02/24/23 Range/Units 23:37 09:33 Sodium 128 L 131 L (137-145) mmol/L Chloride 97 L 96 L (98-107) mmol/L BUN 19 H (7-17) mg/dL Osmolality 278 L (280-301) mosm/kg Assessment and Plan Assessment: #1 acute on chronic hypotonic hyponatremia suspect volume depletion. -Urine sodium off less than 20 Concern for SIADH with chronicity. #2 chronic diarrhea #3 normal renal function #4 EtOH abuse #5 left clavicle fracture Plan: #1 sodium improving with normal saline but not back to baseline. #2 component of underlying SIADH cannot be totally excluded. #3 stable from nephrology for discharge to be followed up in the office in 1-2 weeks with repeat labs
== END 2023-02-24 15:36 | disposition home or self-care (01) ==
LOC: EC 11:36 → 6NMEDSUR 13:07
PROVIDERS: ADMIT Internal Medicine; ATTEND Internal Medicine
DX: E87.1 Hypo-osmolality and hyponatremia (principal); F10.20 Alcohol dependence, uncomplicated; K52.9 Noninfective gastroenteritis and colitis, unspecified; S42.032A Displaced fracture of lateral end of left clavicle, initial encounter for closed fracture; S22.42XA Multiple fractures of ribs, left side, initial encounter for closed fracture; W01.0XXA Fall on same level from slipping, tripping and stumbling without subsequent striking against object, initial encounter; I49.3 Ventricular premature depolarization; I10 Essential (primary) hypertension; F17.200 Nicotine dependence, unspecified, uncomplicated; R74.01 Elevation of levels of liver transaminase levels; Z79.899 Other long term (current) drug therapy; Z90.710 Acquired absence of both cervix and uterus; Z98.51 Tubal ligation status; Z98.49 Cataract extraction status, unspecified eye; Z71.6 Tobacco abuse counseling; Z71.41 Alcohol abuse counseling and surveillance of alcoholic
CPT/HCPCS: 96372; 99285; 36415; 93005; 84439; 84300; 83930 ×2; 84481; 80053; 80048 ×3; 83605; 83735; 84100; 84443; 84484; 85025; 85027; 81003; 83935; 83036; 73030; 71100; 71046; 76770; G0378 ×3; J3411; 96361